=== PATIENT | female | born 1970 | race Caucasian/White ===

== ENCOUNTER → 2016-12-30 | Outpatient (CLI) | payer BC ==
[~2016-12-30] MED LIST: AUGMENTIN 875-1 EACH PO
--- NOTE | ~2016-12-30 | 24HR ---
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 Study duration 24 hours and technical quality good 2. Predominant rhythm sinus rhythm at an average heart rate is 77 bpm, range 54-125 bpm. Longest RR interval 1.2 seconds. 3. Rare isolated atrial premature complexes. No atrial fibrillation or atrial flutter. No heart block. No SVT. 4. Rare isolated premature ventricular complexes. No episodes of ventricular tachycardia. No ventricular triplets or couplets. 5. No symptoms reported Electronically Signed On 01-03-2017 8:23:42 CDT by Roman Edwards [email or web address] <ELECTRONICALLY SIGNED> By: Roman Edwards MD, [facility] 01/03/17 0823 1548 1548 Roman Edwards MD, [facility] /EPI
== END ==
LOC: CV 12-23 08:12
DX: R00.2 Palpitations (principal)

== ENCOUNTER → 2017-08-25 | Outpatient (CLI) | payer BC | LOC: ULTRA 09:24 | DX: D25.9 Leiomyoma of uterus, unspecified (principal) ==

== ENCOUNTER → 2017-09-15 | Outpatient (CLI) | payer BC | LOC: MRI 08-12 09:54 | DX: G89.29 Other chronic pain (principal); R10.9 Unspecified abdominal pain ==